=== PATIENT | male | born 1965 | race African-American/Black ===

== ENCOUNTER 2016-12-22 10:08 | Inpatient (IN) | payer MEDICAID ==
[~2016-12-22] VITALS: Ht 175.3 cm; Wt 63.5 kg
[~2016-12-22 10:08] MED LIST: [UNRECOGNIZED DRUG - OTHER]
[2016-12-22 11:00] LABS: HEMATOCRIT. 37.6 % (42.0-52.0); HEMOGLOBIN. 12.7 g/dL (14.0-18.0); MEAN CORPUSCULAR HEMOGLOBIN 31.4 pg (28.0-32.0); MEAN CORPUSCULAR VOLUME 93.1 fL (80.0-94.0); MEAN PLATELET VOLUME 6.8 fl (7.4-10.4); PLATELET 369 x1000/uL (130-400); RED BLOOD CELL COUNT 4.04 mill/uL (4.7-6.1); RED CELL DISTRIBUTION WIDTH 14.4 % (11.6-14.6)
[2016-12-22 11:16] LABS: CARBON DIOXIDE 28 mEq/L (21-32); CHLORIDE 103 mEq/L (98-107)
[2016-12-22] MEDS ORDERED: IOHEXOL-300 100 ML BOTTLE ONE (11:17)
[2016-12-22] MEDS ORDERED: DIATR MEGLU/DIATRIZOATE SOLN 120ML ONE (11:17)
[2016-12-22] MEDS ORDERED: SODIUM CHLORIDE 0.9% 10ML VIAL ONE (11:17)
[2016-12-22 11:58] LABS: CLARITY URINE CLEAR (CLEAR); COLOR URINE YELLOW (YELLOW); KETONES URINE NEGATIVE (NEGATIVE); LEUKOCYTE ESTERASE URINE NEGATIVE (NEGATIVE); NITRITE URINE NEGATIVE (NEGATIVE); OCCULT BLOOD URINE NEGATIVE (NEGATIVE); PROTEIN URINE NEGATIVE (NEGATIVE); SPECIFIC GRAVITY URINE 1.017 (1.005-1.030); UROBILINOGEN URINE 0.2 E.U./dL (0.2-1.0)
[2016-12-22 12:06] LABS: PLATELET ESTIMATE NORMAL
[2016-12-22] MEDS ORDERED: LISI-604 PO (14:58)
[2016-12-22] MEDS ORDERED: CLONIDINE 0.1MG TABLET PO PRN (15:15)
[2016-12-22] MEDS ORDERED: ONDANSETRON HCL 4MG/2ML VIAL IV PRN (15:15)
[2016-12-22] MEDS ORDERED: ACETAMINOPHEN 325MG TABLET PO PRN (15:15)
[2016-12-22] MEDS ORDERED: MAGNESIUM/ALUMINUM HYDROXIDE/SIMETHICONE 30ML UDC PO PRN (15:15)
[2016-12-22] MEDS ORDERED: IPRATROPIUM/ALBUTEROL 0.5-3(2.5)MG/3ML NEB INH PRN (15:15)
[2016-12-22] MEDS ORDERED: DOCUSATE SODIUM 100MG CAPSULE PO PRN (15:15)
[2016-12-22] MEDS ORDERED: MVI, ADULT NO.1 10 ML, FOLIC ACID 1 MG, THIAMINE HCL 100 MG in SODIUM CHLORIDE 0.9% 1,0... IV SCH ×4 (18:00)
[2016-12-22] MEDS: HYDROCODONE/ACETAMINOPHEN 5/325MG TABLET PO PRN (18:25)
[2016-12-22 19:43] LABS: CARBON DIOXIDE 30 mEq/L (21-32); CHLORIDE 102 mEq/L (98-107)
[2016-12-22] MEDS: CHLORDIAZEPOXIDE 25MG CAPSULE PO SCH (21:10)
[2016-12-22] MEDS ORDERED: ENOXAPARIN 60MG/0.6ML SYR SUBCUT SCH (22:00)
[2016-12-22 22:03] LABS: TOTAL IRON BINDING CAPACITY 225 ug/dL (250-450)
[2016-12-22 22:22] LABS: FERRITIN 71 ng/mL (22-322)
[2016-12-22 22:28] LABS: CARCINO EMBRYONIC ANTIGEN 0.1 ng/ml
[2016-12-23] MEDS: CHLORDIAZEPOXIDE 25MG CAPSULE PO SCH ×3 (06:05→21:32)
[2016-12-23 07:21] LABS: HEMATOCRIT. 33.9 % (42.0-52.0); HEMOGLOBIN. 11.5 g/dL (14.0-18.0); MEAN CORPUSCULAR HEMOGLOBIN 31.4 pg (28.0-32.0); MEAN CORPUSCULAR VOLUME 92.7 fL (80.0-94.0); MEAN PLATELET VOLUME 7.4 fl (7.4-10.4); PLATELET 368 x1000/uL (130-400); RED BLOOD CELL COUNT 3.66 mill/uL (4.7-6.1); RED CELL DISTRIBUTION WIDTH 14.1 % (11.6-14.6)
[2016-12-23 08:12] LABS: *AMPHETAMINES SCREEN URINE NEGATIVE (NEGATIVE); *BARBITURATES SCREEN URINE NEGATIVE (NEGATIVE); *BENZODIAZEPINES SCREEN URINE NEGATIVE (NEGATIVE); *COCAINE SCREEN URINE PRESUMTIVE POSITIVE (NEGATIVE); CANNABINOID URINE SCREEN NEGATIVE (NEGATIVE); METHADONE URINE SCREEN NEGATIVE (NEGATIVE); OPIATES URINE SCREEN NEGATIVE (NEGATIVE); PHENCYCLIDINE URINE SCREEN NEGATIVE (NEGATIVE)
[2016-12-23] MEDS: FOLIC ACID 1MG TABLET PO SCH (08:42)
[2016-12-23] MEDS: THIAMINE HCL 100MG TABLET PO SCH (08:42)
[2016-12-23] MEDS: MULTIVITAMINS,THER W-MINERALS TABLET PO SCH (08:42)
[2016-12-23] MEDS: LISINOPRIL 20MG TABLET PO SCH (08:42)
[2016-12-23] MEDS: HYDROCODONE/ACETAMINOPHEN 5/325MG TABLET PO PRN (09:25)
[2016-12-23 12:37] LABS: VITAMIN B12 SERUM 248 pg/mL (211-911)
[2016-12-23 12:38] LABS: FOLIC ACID (FOLATE) SERUM > 20.00 ng/mL (>5.38)
[2016-12-24] MEDS: CHLORDIAZEPOXIDE 25MG CAPSULE PO SCH (05:32)
[2016-12-24 06:43] LABS: HEMATOCRIT. 35.4 % (42.0-52.0); HEMOGLOBIN. 11.9 g/dL (14.0-18.0); MEAN CORPUSCULAR HEMOGLOBIN 31.2 pg (28.0-32.0); MEAN CORPUSCULAR VOLUME 93.2 fL (80.0-94.0); MEAN PLATELET VOLUME 7.4 fl (7.4-10.4); PLATELET 404 x1000/uL (130-400); RED CELL DISTRIBUTION WIDTH 14.1 % (11.6-14.6)
[2016-12-24 08:36] LABS: CHLORIDE 106 mEq/L (98-107)
[2016-12-24 08:47] LABS: CARBON DIOXIDE 27 mEq/L (21-32)
[2016-12-24] MEDS: THIAMINE HCL 100MG TABLET PO SCH (08:47)
[2016-12-24] MEDS: MULTIVITAMINS,THER W-MINERALS TABLET PO SCH (08:47)
[2016-12-24] MEDS: LISINOPRIL 20MG TABLET PO SCH (08:47)
[2016-12-24] MEDS: FOLIC ACID 1MG TABLET PO SCH (08:47)
[2016-12-24 12:23] LABS: PLATELET ESTIMATE NORMAL
[2016-12-24 12:32] VITALS: BP 137/85
[2016-12-24 15:20] LABS: PLATELET ESTIMATE NORMAL
== END 2016-12-24 13:15 | disposition home or self-care (01) | DRG 500 ==
LOC: ER 12:18 → 8WST 14:05 → ENRESERV 14:28
PROVIDERS: ADMIT Internal Medicine; ATTEND Internal Medicine
DX: C76.3 Malignant neoplasm of pelvis (principal); E43 Unspecified severe protein-calorie malnutrition; I82.412 Acute embolism and thrombosis of left femoral vein; I10 Essential (primary) hypertension; D63.8 Anemia in other chronic diseases classified elsewhere; F10.20 Alcohol dependence, uncomplicated; K62.9 Disease of anus and rectum, unspecified; K59.00 Constipation, unspecified; Z79.899 Other long term (current) drug therapy; Z87.891 Personal history of nicotine dependence; Z88.0 Allergy status to penicillin
CPT/HCPCS: 36415; 74177; 80048; 80053; 80061; 80305; 81003; 82270; 82378; 82607; 82728; 82746; 83540; 83550; 83690; 83735; 84443; 85025; 85044; 87040; 93970; 99285; A4216; J1650; J3411; J3490; J7030; J7050; Q9963; Q9967